=== PATIENT | male | born 1980 | race African-American/Black ===

== ENCOUNTER 2019-11-01 14:44 | Emergency (ER) | payer OTHER, SELFPAY ==
--- NOTE | ~2019-11-01 | XR_ITS ---
EXAMINATION: XR hand LT min 3V EXAM DATE: 11/01/2019 15:26 INDICATION: Left hand swelling. Infection. Left fifth metacarpal fracture 6 months ago, surgical pinn ing, patient fell out weeks ago. Oozing from site. TECHNIQUE: Left hand frontal, lateral and oblique projections obtained and reviewed. There is no effie or study for comparison. FINDINGS: There is a fixation pin bridging the left fifth metacarpal neck to the fourth metacarpal ba se. There is lucency surrounding the pin at both of these metacarpal bones, suspicious for acute oste omyelitis. There are also some other erosive changes at the neck of the left fifth metacarpal bone co nsistent with osteomyelitis. The fracture appears to have essentially healed. No other suspicious fin dings. IMPRESSION: Surgical fixation pin with surrounding lucency, and some fifth metacarpal neck lucency zhu spicious for osteomyelitis of left fourth and fifth metacarpal bones. No subcutaneous gas. Reviewed, dictated and finalized at location B. ICATION SUPERVISOR IMPRESSION: Surgical fixation pin with surrounding lucency, and some fifth meta carpal neck lucency suspicious for osteomyelitis of left fourth and fifth metac arpal bones. No subcutaneous gas.
[2019-11-01 14:51] VITALS: BP 133/84; PULSE 101; RESP 18; TEMP 36.6; O2SAT 100
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
== END 2019-11-01 15:52 | disposition short-term general hospital (02) ==
PROVIDERS: Emergency Provider Nurse Practitioner Family
DX: M86.9 Osteomyelitis, unspecified (principal)
CPT/HCPCS: 73130; 99203; G0463

== ENCOUNTER 2019-11-01 16:26 | Emergency (ER) | payer OTHER, SELFPAY ==
[2019-11-01 17:26] VITALS: BP 128/73; PULSE 90; RESP 16; TEMP 36.9; O2SAT 97
--- NOTE | 2019-11-01 19:43 | PC.NURSE ---
NO ANSWER AT 1942
--- NOTE | 2019-11-01 20:01 | PC.NURSE ---
NO ANSWER AT 2001
== END 2019-11-01 20:01 | disposition left against medical advice (07) ==
DX: S61.409A Unspecified open wound of unspecified hand, initial encounter (principal)
CPT/HCPCS: 99199

== ENCOUNTER 2020-08-17 22:38 | Emergency (ER) | payer OTHER, SELFPAY ==
--- NOTE | 2020-08-17 22:43 | ED.SKABFB ---
HPI - Skin/Abscess/Foreign Bdy General Chief complaint: Animal Bite Stated complaint: insect bite Time Seen by Provider: 08/17/20 22:42 Source: patient Mode of arrival: ambulatory Limitations: no limitations History of Present Illness HPI narrative: Patient is a 39-year-old male with a history of anaphylaxis to shellfish, wasp stings, who presents for evaluation of wasp sting to his left hand. Patient reports he was moving boxes in an empty basement when he noticed a wasp landed on his hand when he tried to remove it it then stung him. Patient reports swelling of his left middle knuckle and pain that is spreading throughout his hand. He denies any wheezing, cough or shortness of breath. No throat pain or difficulty breathing. No hives. No rashes. No nausea, vomiting or diarrhea. Related Data Allergies Allergy/AdvReac Type Severity Reaction Status Date / Time Penicillins Allergy Unknown Dyspnea / Verified 11/01/19 15:00 SOB shellfish derived Allergy Swelling Verified 11/01/19 15:00 of Lip/Tongue/Throat Review of Systems Review of Systems: Narrative: CONSTITUTIONAL: Denies fever CARDIOVASCULAR: Denies chest pain RESPIRATORY: Denies cough or dyspnea. GASTROINTESTINAL: Denies nausea, vomiting, or diarrhea. GENITOURINARY: Denies dysuria or hematuria. SKIN: Reports swelling of left hand MUSCULOSKELETAL: Reports right hand pain NEUROLOGIC: Denies headache PMFSH Past Medical History Medical History (Updated 08/17/20 @ 23:45 by Kitty Jimenez MD) Anaphylaxis Blind right eye Social History Social History (Updated 08/17/20 @ 23:05 by Kitty Jimenez MD) Smoking status: Current every day smoker Tobacco type: cigarettes Alcohol intake: never Substance use: never Gender identity (if verbalized by the patient): Male Exam Narrative: Exam Narrative: GENERAL: Awake, alert, conversant HEAD: Normocephalic, atraumatic. EYES: PERRLA and EOMI. ENT: Nares clear, no rhinorrhea or epistaxis. Mucous membranes moist. NECK: Supple. CHEST: No respiratory distress, breathing even and non labored HEART: Regular rate, sinus rhythm ABDOMEN:Non distended, non tender EXTREMITIES: Normal range of motion. Mild edema, erythema to the left third metacarpal, full flexion and extension of all phalanxes. No abscess, no fluctuance. Mild induration. No streaking erythema or evidence of cellulitis. Radial pulse 2+. Intact sensation median, ulnar, radial nerve distribution. SKIN: Warm, dry, no rash. NEURO:No focal deficits. Alert and oriented x3 Course Vital Signs Vital signs: Vital Signs Pulse Rate 97 08/17/20 22:44 Respiratory Rate 16 08/17/20 22:44 Blood Pressure 134/94 H 08/17/20 22:44 Pulse Oximetry 96 08/17/20 22:44 Pulse Rate 97 08/17/20 22:44 Respiratory Rate 16 08/17/20 22:44 Blood Pressure 134/94 H 08/17/20 22:44 Pulse Oximetry 96 08/17/20 22:44 MDM - Skin/Abscess/Foreign Bdy MDM Narrative Medical decision making narrative: Patient presented for evaluation following a wasp sting. At the time of assessment, ABCs are intact and vital signs are stable. It has been approximately 1 hour since last seen, no anaphylaxis type symptoms. No wheezing, difficulty breathing, shortness of breath, diarrhea or rash. Patient has mild swelling and edema at the site on the left hand where the envenomation is, no signs of cellulitis or active infection. No severe deformity. Patient was given oral medication as well as intramuscular epinephrine pen. Patient did well after period of observation in the ER. Typically I tried to observe these patients anywhere from 2 to 3 hours, but patient refused stating he wanted to be discharged home. At this point as he has no severe symptoms, no changes in symptoms, no severe edema, no respiratory symptoms, patient was discharged home with close return precautions. Differential Diagnosis Differential diagnosis: Likely urticaria, allergic reaction to
[2020-08-17 22:44] VITALS: BP 134/94; PULSE 97; RESP 16; O2SAT 96
[2020-08-17] MEDS: FAMOTIDINE 20 MG TABLET PO (23:06)
[2020-08-17] MEDS: predniSONE 20 MG TABLET 60 MG PO (23:07)
[2020-08-17] MEDS: diphenhydrAMINE HCl CAP 25 MG CAPSULE 50 MG PO (23:07)
[2020-08-17] MEDS: EPINEPHrine HCL INJ 1 MG/ML AMPUL 0.3 MG IM (23:10)
[2020-08-18 00:13] VITALS: BP 138/82; PULSE 78; RESP 16; O2SAT 99
== END 2020-08-18 00:14 | disposition home or self-care (01) ==
PROVIDERS: Emergency Provider Emergency Medicine
DX: T63.461A Toxic effect of venom of wasps, accidental (unintentional), initial encounter (principal); F17.210 Nicotine dependence, cigarettes, uncomplicated
CPT/HCPCS: 96372; 99283; A9270; J0171; J7512

== ENCOUNTER 2021-09-18 23:46 | Emergency (ER) | payer OTHER, SELFPAY ==
--- NOTE | ~2021-09-18 | XR_ITS ---
EXAMINATION: XR ankle LT min 3V, XR foot LT min 3V DATE: 09/19/2021 00:07 INDICATION: Lateral sided left foot pain post twisting ankle injury TECHNIQUE: 1. Anteroposterior, mortise, additional oblique and lateral view of the left ankle were obtained. 2. Dorsoplantar, two oblique and lateral views of the left foot were obtained. COMPARISON: None. FINDINGS: Alignment of the foot and ankle is normal. No fracture or osteochondral lesion. Joint spaces are well maintained. No ankle joint effusion. The soft tissues are unremarkable. IMPRESSION: 1. Negative left foot and ankle radiographs. Reviewed, dictated and finalized at location A. [employer] HOME TECHNICIAN IMPRESSION: 1. Negative left foot and ankle radiographs.
[2021-09-18 21:23] VITALS: BP 118/63; PULSE 107; RESP 18; TEMP 36.7; O2SAT 98
--- NOTE | 2021-09-18 23:52 | ED.LOWEXIN ---
HPI - Extremity Injury (Lower) General Chief Complaint: Extremity Injury, Lower Stated Complaint: left ankle injury Time Seen by Provider: 09/18/21 23:50 Source: patient and RN notes reviewed Mode of arrival: ambulatory Limitations: no limitations History of Present Illness HPI Narrative: This is a 40 year old male who presents for evaluation of left ankle pain. He states he was walking when he stepped wrong on a curb. This caused him to twist his ankle. He states he has been unable ambulate due to pain so he immediately came to ER. He has not taken anything for pain. He denies numbness or tingling. Related Data Allergies Allergy/AdvReac Type Severity Reaction Status Date / Time Penicillins Allergy Unknown Dyspnea / Verified 09/18/21 21:27 SOB shellfish derived Allergy Swelling Verified 09/18/21 21:27 of Lip/Tongue/Throat Review of Systems Review of Systems: All systems reviewed & are unremarkable except as noted in HPI and below PMFSH Past Medical History Medical History (Updated 09/19/21 @ 00:30 by Yeny Pinedo MD) Anaphylaxis Blind right eye Surgical History Surgical History (Updated 09/18/21 @ 23:56 by Yeny Pinedo MD) H/O hand surgery Social History Social History (Updated 08/17/20 @ 23:05 by Kitty Jimenez MD) Smoking status: Current every day smoker Tobacco type: cigarettes Alcohol intake: never Substance use: never Gender identity (if verbalized by the patient): Male Exam Const: General: no acute distress and alert Nutritional Appearance: thin Orientation/consciousness: patient oriented x3 Eyes: EOM: EOMs intact bilaterally Resp: Effort & Inspection: normal respiratory effort and no retractions Auscultation: clear to auscultation bilaterally Cardio: Rate: regular rate Rhythm: regular rhythm Heart sounds: no murmurs Extrem: Other: no swelling, no deformity, no bruising Psych: Mental Status: mental status grossly normal Affect: normal affect Course Reevaluation(s) Reevaluation #1: I discussed with patient preliminary reading of xray is no fracture. He was made aware that he will be called if discrepancy found by radiology later today. His ankle is being wrapped with karla bandage by nurse and he will be given post op shoe. Date: 09/19/21 Time: 00:28 Vital Signs Vital signs: Vital Signs Temperature 98.1 F 09/18/21 21:23 Pulse Rate 107 H 09/18/21 21:23 Respiratory Rate 18 09/18/21 21:23 Blood Pressure 118/63 09/18/21 21:23 Pulse Oximetry 98 09/18/21 21:23 Temperature 98.1 F 09/18/21 21:23 Pulse Rate 107 H 09/18/21 21:23 Respiratory Rate 18 09/18/21 21:23 Blood Pressure 118/63 09/18/21 21:23 Pulse Oximetry 98 09/18/21 21:23 MDM - Extremity Injury (Lower) Imaging Data Attestation: I personally reviewed and interpreted this imaging study as follows: My impression: left ankle- no acute fracture or dislocation left foot xray- no acute fracture Discharge Plan Discharge Clinical Impression: Left ankle sprain Qualifiers: Encounter type: initial encounter Patient Disposition: Home, Self-Care Condition: Stable Instructions: Antibiotic Form, Ankle Sprain (ED) Additional Instructions: Please read your discharge instructions about how to care for your ankle sprain. If your pain does not improve in 1 week follow up with your orthopedic surgeon or primary care physician,. Prescriptions: New ibuprofen 800 mg tablet 800 mg PO Q6H PRN (Reason: pain) Qty: 10 RF: 0 No Action acetaminophen 500 mg capsule 500 mg PO Q6H PRN (Reason: fever or pain) Qty: 30 RF: 0 diphenhydramine HCl [Benadryl] 25 mg capsule 25 mg PO TID PRN (Reason: allergic reaction) Qty: 14 RF: 0 famotidine [Pepcid] 20 mg tablet 20 mg PO BID 5 Days Qty: 10 RF: 0 epinephrine 0.3 mg/0.3 mL auto-injector 0.3 mg IM ONCE Qty: 2 RF: 1 Follow-up/Referrals: PHYSICIAN,ACADEMIC DEAN [Primary Care Pr
[2021-09-19] MEDS: IBUPROFEN 400 MG TABLET 800 MG PO (00:15)
== END 2021-09-19 00:45 | disposition home or self-care (01) ==
PROVIDERS: Emergency Provider General Practice
DX: S93.402A Sprain of unspecified ligament of left ankle, initial encounter (principal); H54.61 Unqualified visual loss, right eye, normal vision left eye; F17.210 Nicotine dependence, cigarettes, uncomplicated; X50.9XXA Other and unspecified overexertion or strenuous movements or postures, initial encounter
CPT/HCPCS: 73610; 73630; 99283; A9270